=== PATIENT | female | born 1955 | race Caucasian/White ===

== ENCOUNTER 2018-04-26 12:36 | Inpatient (IN) | payer OTHER ==
[~2018-04-26] VITALS: Ht 167.6 cm; Wt 118.0 kg
[2018-04-26 15:00] VITALS: BP 123/69
[2018-04-26] MEDS: insulin regular, human inj. 100 UNITS in normal saline 100ml IV soln 100 ML IV SCH ×2 (16:10)
[2018-04-26] MEDS ORDERED: dextrose 50%-water 50ml dispensing syringe IV PRN (16:10)
[2018-04-26] MEDS ORDERED: MESSAGE TO NURSING PO ONE ×3 (16:10)
[2018-04-26] MEDS ORDERED: HYDROcodone/acetaminophen 5mg/325mg tablet PO PRN (16:15)
[2018-04-26] MEDS ORDERED: diphenhydrAMINE 25mg capsule PO PRN (16:15)
[2018-04-26] MEDS ORDERED: METF500T PO (16:31)
[2018-04-26] MEDS ORDERED: GABA-534 PO (16:32)
[2018-04-26] MEDS ORDERED: SITA50TA PO (16:32)
[2018-04-26 16:57] LABS: HEMATOCRIT 41.8 % (35.0-45.0); HEMOGLOBIN 13.9 g/dl (12.0-16.0); MEAN CORPUSCULAR HEMOGLOBIN 26.9 PG (27.0-31.0); MEAN CORPUSCULAR HGB CONC 33.3 % (33.0-36.5); MEAN CORPUSCULAR VOLUME 80.8 FL (78-98); MEAN PLATELET VOLUME 8.8 FL (7.4-10.4); PLATELET COUNT 296 X10'3 (140-440); RED BLOOD COUNT 5.18 X10'6 (4.20-5.60); RED CELL DISTRIBUTION WIDTH 14.3 % (11.5-14.5)
[2018-04-26 17:17] LABS: HEMOGLOBIN A1C 8.1 % (4.5-6.2)
[2018-04-26 17:18] LABS: ALBUMIN 3.3 G/DL (3.4-5.0); ANION GAP 7 (8-16); BLOOD UREA NITROGEN 14 MG/DL (7-18); BUN/CREATININE RATIO 20.9 (6.6-38.0); CALCIUM 9.1 MG/DL (8.5-10.1); CHLORIDE 103 MMOL/L (99-107); CREATININE 0.67 MG/DL (0.40-0.90); GLUCOSE 164 MG/DL (70-104); POTASSIUM 4.2 MMOL/L (3.5-5.1); SODIUM 139 MMOL/L (135-145); TOTAL CARBON DIOXIDE 28.8 MMOL/L (24-32); eGFR 90 ML/MIN
[2018-04-26] MEDS: metFORMIN 500mg tablet PO SCH (17:40)
[2018-04-26 18:01] LABS: PARTIAL THROMBOPLASTIN TIME 28 SECONDS (22-32); PROTHROMBIN TIME 10.6 SECONDS (9.0-12.0)
[2018-04-26 19:00] VITALS: BP 123/59
[2018-04-26] MEDS ORDERED: ibuprofen 200mg tablet PO SCH (20:00)
[2018-04-26] MEDS: carVEDilol 3.125mg tablet PO SCH (20:41)
[2018-04-26] MEDS: enoxaparin 40mg/0.4ml syringe SUBCUT SCH (20:42)
[2018-04-26 23:00] VITALS: BP 119/63
[2018-04-26] MEDS: gabapentin 400mg capsule PO SCH (23:18)
[2018-04-27 03:00] VITALS: BP 103/57
[2018-04-27 06:00] VITALS: BP 123/67
[2018-04-27] MEDS ORDERED: glipizide 5mg tablet PO SCH (07:30)
[2018-04-27] MEDS: atorvastatin 20mg tablet PO SCH (07:57)
[2018-04-27] MEDS: gabapentin 400mg capsule PO SCH ×2 (07:57→18:51)
[2018-04-27] MEDS: aspirin 81mg tab.chew PO SCH (07:57)
[2018-04-27] MEDS: carVEDilol 3.125mg tablet PO SCH ×2 (07:58→19:50)
[2018-04-27] MEDS: metFORMIN 500mg tablet PO SCH (07:58)
[2018-04-27] MEDS: enoxaparin 40mg/0.4ml syringe SUBCUT SCH ×2 (07:59→19:51)
[2018-04-27] MEDS: mupirocin 2% nasal ointment 1gm UD NS SCH ×2 (08:00→20:00)
[2018-04-27] MEDS: insulin Lispro (HumaLOG) vial - multi-dose SQ SCH ×3 (09:00→18:00)
[2018-04-27] MEDS ORDERED: MESSAGE TO NURSING PO ONE (10:00)
[2018-04-27 11:00] VITALS: BP 99/57
[2018-04-27] MEDS ORDERED: albuterol 2.5 MG/3 ML nebule NEB ONE (11:15)
[2018-04-27 12:55] LABS: ABG BASE EXCESS 0.4 mmol/L (-2.0-3.0); ABG HCO3 25.1 mmol/L (22.0-26.0); ABG OXYGEN SATURATION 92.3 % (95-98); ABG PCO2 (T) 40.8 mmHg (32.0-45.0); ABG PH (T) 7.407 (7.350-7.450); ABG PO2 (T) 61.3 mmHg (83-108); ALLEN'S TEST Positive; FCOHb 0.8 % (0.5-1.5); FMetHb 0.1 % (0.3-1.12); FO2Hb 91.5 % (94-100); TOTAL HEMOGLOBIN 14.5 G/dl (12.0-16.0)
[2018-04-27 15:00] VITALS: BP 115/61
[2018-04-27] MEDS: insulin regular, human inj. 100 UNITS in normal saline 100ml IV soln 100 ML IV SCH ×2 (16:10)
[2018-04-27 19:00] VITALS: BP 109/50
[2018-04-27 23:00] VITALS: BP 109/56
[2018-04-28] MEDS: gabapentin 400mg capsule PO SCH ×3 (01:22→16:06)
[2018-04-28 03:00] VITALS: BP 117/64
[2018-04-28 05:51] LABS: BASOPHILS % (AUTO) 0.4 % (0-1); EOSINOPHILS # (AUTO) 0.3 X10'3 (0-0.9); EOSINOPHILS % (AUTO) 2.6 % (0-6); HEMATOCRIT 39.8 % (35.0-45.0); HEMOGLOBIN 13.4 g/dl (12.0-16.0); LYMPHOCYTES # (AUTO) 2.4 X10'3 (1.1-4.8); MEAN CORPUSCULAR HGB CONC 33.5 % (33.0-36.5); MEAN CORPUSCULAR VOLUME 80.4 FL (78-98); MONOCYTES % (AUTO) 9.1 % (2-12); NEUTROPHILS # (AUTO) 7.2 X10'3 (1.8-7.7); NEUTROPHILS % (AUTO) 65.9 % (42-75); PLATELET COUNT 267 X10'3 (140-440); RED BLOOD COUNT 4.95 X10'6 (4.20-5.60); RED CELL DISTRIBUTION WIDTH 14.6 % (11.5-14.5)
[2018-04-28 06:00] VITALS: BP_SYST 113; BP_SYST 133; BP_DIAS 56; BP_DIAS 71
[2018-04-28 06:08] LABS: ALBUMIN 3.2 G/DL (3.4-5.0); ANION GAP 10 (8-16); BLOOD UREA NITROGEN 13 MG/DL (7-18); BUN/CREATININE RATIO 16.3 (6.6-38.0); CALCIUM 9.1 MG/DL (8.5-10.1); CHLORIDE 102 MMOL/L (99-107); GLUCOSE 163 MG/DL (70-104); SODIUM 139 MMOL/L (135-145); TOTAL CARBON DIOXIDE 26.9 MMOL/L (24-32); eGFR 73 ML/MIN
[2018-04-28] MEDS: enoxaparin 40mg/0.4ml syringe SUBCUT SCH ×2 (07:06→20:00)
[2018-04-28] MEDS: atorvastatin 20mg tablet PO SCH (07:16)
[2018-04-28] MEDS: mupirocin 2% nasal ointment 1gm UD NS SCH ×2 (07:16→08:00)
[2018-04-28] MEDS: carVEDilol 3.125mg tablet PO SCH ×2 (07:17→20:38)
[2018-04-28] MEDS ORDERED: dextrose 50%-water 50ml dispensing syringe IV PRN ×2 (08:50)
[2018-04-28] MEDS ORDERED: dextrose ORAL solution 15 GM/59 ML bottle PO PRN ×2 (08:50)
[2018-04-28] MEDS ORDERED: insulin Lispro (HumaLOG) vial - multi-dose SQ SCH (08:50)
[2018-04-28] MEDS ORDERED: glucagon, human recombinant 1mg kit SUBCUT PRN (08:50)
[2018-04-28] MEDS: insulin Lispro (HumaLOG) vial - multi-dose SQ SCH ×4 (09:00→19:30)
[2018-04-28] MEDS: aspirin 81mg tab.chew PO SCH (09:08)
[2018-04-28 11:00] VITALS: BP 128/82
[2018-04-28 15:00] VITALS: BP 101/62
[2018-04-28] MEDS ORDERED: ringers solution, lacted 1,000 ML IV ONE (16:33)
[2018-04-28 19:00] VITALS: BP 122/55
[2018-04-28] MEDS ORDERED: insulin glargine (Lantus) pen - multi-dose SQ SCH (21:00)
[2018-04-28 23:00] VITALS: BP 124/54
[2018-04-29] VITALS (16 sets, daily range): BP systolic 112–147; BP diastolic 46–63
[2018-04-29] MEDS: gabapentin 400mg capsule PO SCH ×2 (00:01→08:00)
[2018-04-29] MEDS ORDERED: mupirocin 2% nasal ointment 1gm UD NS SCH (03:00)
[2018-04-29] MEDS ORDERED: metoprolol tartrate 12.5mg (1/2 tablet) PO ONE (05:50)
[2018-04-29] MEDS ORDERED: ceFAZolin 1GM/D5W- ADD-VANTAGE 50 ML IV ONE (06:00)
[2018-04-29] MEDS ORDERED: LORazepam 2 mg/ml vial IV ONE (06:00)
[2018-04-29] MEDS: insulin regular, human inj. 100 UNITS in normal saline 100ml IV soln 100 ML IV SCH ×2 (06:00)
[2018-04-29] MEDS ORDERED: famotidine/PF 10 mg/ml inj IV ONE (06:00)
[2018-04-29] MEDS ORDERED: vancomycin/NS 1 GM ADD-VANTAGE 250 ML IV ONE (06:00)
[2018-04-29 06:12] LABS: BASOPHILS % (AUTO) 0.4 % (0-1); EOSINOPHILS # (AUTO) 0.3 X10'3 (0-0.9); EOSINOPHILS % (AUTO) 2.6 % (0-6); HEMATOCRIT 40.3 % (35.0-45.0); HEMOGLOBIN 13.5 g/dl (12.0-16.0); LYMPHOCYTES # (AUTO) 2.5 X10'3 (1.1-4.8); LYMPHOCYTES % (AUTO) 21.1 % (21-51); MEAN CORPUSCULAR HEMOGLOBIN 27.1 PG (27.0-31.0); MEAN CORPUSCULAR HGB CONC 33.5 % (33.0-36.5); MEAN PLATELET VOLUME 8.8 FL (7.4-10.4); MONOCYTES % (AUTO) 8.2 % (2-12); NEUTROPHILS % (AUTO) 67.7 % (42-75); PLATELET COUNT 279 X10'3 (140-440); RED BLOOD COUNT 4.97 X10'6 (4.20-5.60); RED CELL DISTRIBUTION WIDTH 14.7 % (11.5-14.5); WHITE BLOOD COUNT 11.8 X10'3 (4.5-11.0)
[2018-04-29 06:25] LABS: INR 1.1 INR; PROTHROMBIN TIME 10.7 SECONDS (9.0-12.0)
[2018-04-29 06:27] LABS: ALBUMIN 3.3 G/DL (3.4-5.0); ANION GAP 9 (8-16); BLOOD UREA NITROGEN 18 MG/DL (7-18); BUN/CREATININE RATIO 23.1 (6.6-38.0); CALCIUM 8.8 MG/DL (8.5-10.1); CHLORIDE 104 MMOL/L (99-107); CREATININE 0.78 MG/DL (0.40-0.90); GLUCOSE 158 MG/DL (70-104); SODIUM 141 MMOL/L (135-145); TOTAL CARBON DIOXIDE 28.5 MMOL/L (24-32); eGFR 75 ML/MIN
[2018-04-29] MEDS ORDERED: sevoflurane 250ml liquid IH ONE (06:40)
[2018-04-29] MEDS ORDERED: protamine sulf. 10mg/ml inj. IV ONE (06:40)
[2018-04-29] MEDS ORDERED: aminocaproic acid 250 MG/1 ML inj. ONE (06:40)
[2018-04-29] MEDS ORDERED: nitroGLYCERIN in D5W 50mg/250ml (Tridil) infusion IV ONE (06:40)
[2018-04-29] MEDS ORDERED: MIDAZolam 1mg/ml 10ml vial ONE (06:50)
[2018-04-29] MEDS ORDERED: SUFENTANIL CITRATE 50 MCG/ML 2ml ampule IV ONE ×2 (06:51→08:14)
[2018-04-29] MEDS ORDERED: etomidate 2mg/ml inj. ONE (06:53)
[2018-04-29] MEDS ORDERED: pancuronium br 1mg/ml inj IV ONE (06:53)
[2018-04-29 07:36] LABS: ABG BASE EXCESS -2.9 mmol/L (-2.0-3.0); ABG HCO3 21.9 mmol/L (22.0-26.0); ABG OXYGEN SATURATION 96.8 % (95-98); ABG PCO2 38.5 mmHg (35.0-45.0); ABG PH 7.373 (7.350-7.450); ABG PO2 93.8 mmHg (60.0-100.0); CL (ABG) 105 mmol/L (99-107); FCOHb 0.8 % (0.5-1.5); FMetHb 0.3 % (0.3-1.12); FO2Hb 95.7 % (94-100); GLUCOSE (ABG) 149 mg/dl (70-105); IONIZED CA (ABG) 1.14 mmol/L (1.03-1.32); K (ABG) 4.3 mmol/L (3.3-5.1); NA (ABG) 136 mmol/L (135-145); TOTAL HEMOGLOBIN 13.1 G/dl (12.0-16.0)
[2018-04-29] MEDS ORDERED: heparin 10,000 units/1 ML INJ IR ONE (07:51)
[2018-04-29] MEDS ORDERED: papaverine 30 mg/ml 2ml inj. IA ONE (07:52)
[2018-04-29] MEDS: carVEDilol 3.125mg tablet PO SCH (08:00)
[2018-04-29] MEDS: enoxaparin 40mg/0.4ml syringe SUBCUT SCH (08:00)
[2018-04-29] MEDS: atorvastatin 20mg tablet PO SCH (08:00)
[2018-04-29] MEDS ORDERED: phenylephrine 10mg/ml inj. ONE (08:07)
[2018-04-29] MEDS: aspirin 81mg tab.chew PO SCH (08:30)
[2018-04-29] MEDS: insulin Lispro (HumaLOG) vial - multi-dose SQ SCH ×4 (09:00→14:45)
[2018-04-29 09:16] LABS: ABG BASE EXCESS -2.5 mmol/L (-2.0-3.0); ABG HCO3 22.9 mmol/L (22.0-26.0); ABG OXYGEN SATURATION 98.8 % (95-98); ABG PH 7.354 (7.350-7.450); CL (ABG) 104 mmol/L (99-107); FCOHb 0.1 % (0.5-1.5); FMetHb 0.2 % (0.3-1.12); FO2Hb 98.5 % (94-100); GLUCOSE (ABG) 160 mg/dl (70-105); IONIZED CA (ABG) 1.06 mmol/L (1.03-1.32); K (ABG) 5.1 mmol/L (3.3-5.1); NA (ABG) 133 mmol/L (135-145); TOTAL HEMOGLOBIN 10.8 G/dl (12.0-16.0)
[2018-04-29 09:40] LABS: ABG HCO3 VENOUS 23.9 mmol/L; ABG PCO2 VENOUS 45.9 mmHg; ABG PO2 VENOUS 52.5 mmHg; CL (ABG) 104 mmol/L (99-107); FCOHb VENOUS 0.8 %; FHHb VENOUS 14.5 %; FMetHb VENOUS 0.1 %; FO2Hb VENOUS 84.6 %; GLUCOSE (ABG) 182 mg/dl (70-105); IONIZED CA (ABG) 1.09 mmol/L (1.03-1.32); K (ABG) 4.8 mmol/L (3.3-5.1); NA (ABG) 135 mmol/L (135-145); TOTAL HEMOGLOBIN 11.2 G/dl (12.0-16.0)
[2018-04-29 09:56] LABS: ABG BASE EXCESS 0.3 mmol/L (-2.0-3.0); ABG HCO3 26.6 mmol/L (22.0-26.0); ABG OXYGEN SATURATION 98.8 % (95-98); ABG PCO2 50.9 mmHg (35.0-45.0); ABG PH 7.336 (7.350-7.450); ABG PO2 253.3 mmHg (60.0-100.0); CL (ABG) 104 mmol/L (99-107); FCOHb 0.4 % (0.5-1.5); FMetHb 0.2 % (0.3-1.12); FO2Hb 98.2 % (94-100); GLUCOSE (ABG) 192 mg/dl (70-105); IONIZED CA (ABG) 1.01 mmol/L (1.03-1.32); K (ABG) 4.8 mmol/L (3.3-5.1); NA (ABG) 135 mmol/L (135-145); TOTAL HEMOGLOBIN 10.5 G/dl (12.0-16.0)
[2018-04-29 10:21] LABS: ABG BASE EXCESS -0.1 mmol/L (-2.0-3.0); ABG HCO3 24.8 mmol/L (22.0-26.0); ABG OXYGEN SATURATION 98.7 % (95-98); ABG PCO2 41.3 mmHg (35.0-45.0); ABG PH 7.396 (7.350-7.450); ABG PO2 221.2 mmHg (60.0-100.0); CL (ABG) 106 mmol/L (99-107); FCOHb 0.4 % (0.5-1.5); FO2Hb 98.3 % (94-100); GLUCOSE (ABG) 197 mg/dl (70-105); IONIZED CA (ABG) 1.06 mmol/L (1.03-1.32); K (ABG) 4.8 mmol/L (3.3-5.1); NA (ABG) 135 mmol/L (135-145); TOTAL HEMOGLOBIN 10.6 G/dl (12.0-16.0)
[2018-04-29 10:45] LABS: ABG BASE EXCESS 2.9 mmol/L (-2.0-3.0); ABG HCO3 28.5 mmol/L (22.0-26.0); ABG OXYGEN SATURATION 98.8 % (95-98); ABG PCO2 49.2 mmHg (35.0-45.0); ABG PH 7.381 (7.350-7.450); CL (ABG) 103 mmol/L (99-107); FCOHb 0.1 % (0.5-1.5); FMetHb 0.1 % (0.3-1.12); FO2Hb 98.6 % (94-100); GLUCOSE (ABG) 180 mg/dl (70-105); IONIZED CA (ABG) 1.43 mmol/L (1.03-1.32); K (ABG) 4.9 mmol/L (3.3-5.1); NA (ABG) 132 mmol/L (135-145); TOTAL HEMOGLOBIN 9.6 G/dl (12.0-16.0)
[2018-04-29 11:06] LABS: ABG BASE EXCESS VENOUS 1.8 mmol/L; ABG HCO3 VENOUS 28.3 mmol/L; ABG PCO2 VENOUS 53.6 mmHg; ABG PO2 VENOUS 47.2 mmHg; CL (ABG) 105 mmol/L (99-107); FCOHb VENOUS 0.8 %; FHHb VENOUS 19.6 %; FMetHb VENOUS 0.2 %; FO2Hb VENOUS 79.4 %; GLUCOSE (ABG) 166 mg/dl (70-105); IONIZED CA (ABG) 1.27 mmol/L (1.03-1.32); K (ABG) 4.6 mmol/L (3.3-5.1); NA (ABG) 136 mmol/L (135-145); TOTAL HEMOGLOBIN 10.3 G/dl (12.0-16.0)
[2018-04-29] MEDS ORDERED: albumin (Human) 5% 250ml 250 ML IV ONE (11:33)
[2018-04-29] MEDS ORDERED: ondansetron/PF 4mg/2ml inj IV PRN (11:35)
[2018-04-29] MEDS ORDERED: morphine 4 MG/ML inj SYRINge IV PRN (11:35)
[2018-04-29] MEDS ORDERED: niCARDipine-NS 40mg/200ml IVPB 200 ML IV PRN (11:35)
[2018-04-29] MEDS ORDERED: DOPamine 400mg/D5W 250ml 250 ML IV PRN (11:35)
[2018-04-29] MEDS ORDERED: metoclopramide 5 mg/ml inj IV PRN (11:35)
[2018-04-29] MEDS ORDERED: albumin (Human) 5% 250ml 250 ML IV PRN (11:35)
[2018-04-29] MEDS ORDERED: normal saline 250ml IV soln 250 ML IV PRN (11:35)
[2018-04-29] MEDS ORDERED: magnesium hydroxide 30ml (MOM) UD suspension PO PRN (11:35)
[2018-04-29] MEDS ORDERED: potassium Cl 20mEq/100mL bag 100 ML IV PRN ×2 (11:35)
[2018-04-29] MEDS ORDERED: pantoprazole 40 MG vial IV ONE (11:35)
[2018-04-29] MEDS ORDERED: sodium phosphate inj. 30 MMOL in dextrose 5%-water 250 ML IV PRN (11:35)
[2018-04-29] MEDS ORDERED: dextrose 50%-water 50ml dispensing syringe IV PRN (11:35)
[2018-04-29] MEDS ORDERED: magnesium 4gm in 100ml NS 100 ML IV PRN (11:35)
[2018-04-29] MEDS ORDERED: nitroGLYCERIN-Tridil 50MG/D5W 250 ML IV PRN ×2 (11:35→12:05)
[2018-04-29] MEDS ORDERED: Neutra Phos packet PO PRN (11:35)
[2018-04-29] MEDS ORDERED: sodium phosphate inj. 15 MMOL in dextrose 5%-water 150 ML IV PRN (11:35)
[2018-04-29] MEDS ORDERED: acetaminophen 325mg tablet PO PRN (11:35)
[2018-04-29] MEDS ORDERED: insulin regular, human inj. 100 UNITS in normal saline 100ml IV soln 100 ML IV SCH ×2 (11:35)
[2018-04-29 12:11] LABS: ABG BASE EXCESS -0.5 mmol/L (-2.0-3.0); ABG HCO3 24.6 mmol/L (22.0-26.0); ABG OXYGEN SATURATION 94.6 % (95-98); ABG PH (T) 7.385 (7.350-7.450); ABG PO2 (T) 75.7 mmHg (83-108); FCOHb 0.1 % (0.5-1.5); FMetHb 0.2 % (0.3-1.12); FO2Hb 94.3 % (94-100); MINUTE VOLUME 15 L/min; PEEP 5 cm H2O; RESPIRATORY RATE 14 b/min; RESPIRATORY RATE (OBSERVED) 31 b/min; TIDAL VOLUME 650 mL; TOTAL HEMOGLOBIN 12.5 G/dl (12.0-16.0)
[2018-04-29 12:21] LABS: BASOPHILS % (AUTO) 0.1 % (0-1); EOSINOPHILS % (AUTO) 0.1 % (0-6); HEMATOCRIT 35.3 % (35.0-45.0); HEMOGLOBIN 11.7 g/dl (12.0-16.0); LYMPHOCYTES # (AUTO) 1.3 X10'3 (1.1-4.8); LYMPHOCYTES % (AUTO) 6.7 % (21-51); MEAN CORPUSCULAR HEMOGLOBIN 26.9 PG (27.0-31.0); MEAN CORPUSCULAR HGB CONC 33.1 % (33.0-36.5); MEAN CORPUSCULAR VOLUME 81.2 FL (78-98); MEAN PLATELET VOLUME 8.9 FL (7.4-10.4); MONOCYTES # (AUTO) 0.7 X10'3 (0-0.9); MONOCYTES % (AUTO) 3.8 % (2-12); NEUTROPHILS # (AUTO) 16.9 X10'3 (1.8-7.7); NEUTROPHILS % (AUTO) 89.3 % (42-75); PLATELET COUNT 191 X10'3 (140-440); RED BLOOD COUNT 4.35 X10'6 (4.20-5.60); RED CELL DISTRIBUTION WIDTH 14.9 % (11.5-14.5); WHITE BLOOD COUNT 18.9 X10'3 (4.5-11.0)
[2018-04-29] MEDS: morphine 4 MG/ML inj SYRINge IV PRN ×3 (12:36→23:45)
[2018-04-29] MEDS: sodium chloride 0.45% 1,000 ML IV SCH (12:39)
[2018-04-29 12:51] LABS: ALANINE AMINOTRANSFERASE 26 U/L (12-78); ALBUMIN 3.3 G/DL (3.4-5.0); ALBUMIN/GLOBULIN RATIO 1.2 (1.1-1.5); ALKALINE PHOSPHATASE 71 IU/L (46-116); ANION GAP 7 (8-16); ASPARTATE AMINO TRANSFERASE 35 U/L (10-37); BILIRUBIN,TOTAL 0.5 MG/DL (0.1-1.0); BLOOD UREA NITROGEN 18 MG/DL (7-18); BUN/CREATININE RATIO 20.2 (6.6-38.0); CALCIUM 8.7 MG/DL (8.5-10.1); CHLORIDE 108 MMOL/L (99-107); CREATININE 0.89 MG/DL (0.40-0.90); GLUCOSE 132 MG/DL (70-104); INR 1.1 INR; PARTIAL THROMBOPLASTIN TIME 36 SECONDS (22-32); PHOSPHORUS 2.3 MG/DL (2.3-4.5); PROTHROMBIN TIME 11.4 SECONDS (9.0-12.0); SODIUM 142 MMOL/L (135-145); TOTAL CARBON DIOXIDE 26.8 MMOL/L (24-32); eGFR 65 ML/MIN
[2018-04-29] MEDS: potassium Cl 20mEq/100mL bag 100 ML IV PRN ×2 (13:06→15:09)
[2018-04-29 15:20] LABS: ABG BASE EXCESS -2.2 mmol/L (-2.0-3.0); ABG HCO3 21.4 mmol/L (22.0-26.0); ABG OXYGEN SATURATION 96.6 % (95-98); FCOHb 0.3 % (0.5-1.5); FMetHb 0.1 % (0.3-1.12); FO2Hb 96.2 % (94-100); MINUTE VOLUME 12 L/min; PATIENT TEMPERATURE 37.1; PEEP 5 cm H2O; RESPIRATORY RATE 14 b/min; RESPIRATORY RATE (OBSERVED) 24 b/min; TIDAL VOLUME 650 mL
[2018-04-29] MEDS: cefazolin/dext.iso 2gm/100ml 100 ML IV SCH ×2 (15:57→23:44)
[2018-04-29 17:32] LABS: BASOPHILS % (AUTO) 0 % (0-1); EOSINOPHILS # (AUTO) 0.3 X10'3 (0-0.9); EOSINOPHILS % (AUTO) 1.7 % (0-6); HEMATOCRIT 35.1 % (35.0-45.0); HEMOGLOBIN 11.6 g/dl (12.0-16.0); LYMPHOCYTES # (AUTO) 0.7 X10'3 (1.1-4.8); LYMPHOCYTES % (AUTO) 4.1 % (21-51); MEAN CORPUSCULAR HEMOGLOBIN 26.9 PG (27.0-31.0); MEAN CORPUSCULAR VOLUME 81.4 FL (78-98); MEAN PLATELET VOLUME 9.1 FL (7.4-10.4); MONOCYTES # (AUTO) 0.4 X10'3 (0-0.9); MONOCYTES % (AUTO) 2.3 % (2-12); NEUTROPHILS # (AUTO) 16.3 X10'3 (1.8-7.7); NEUTROPHILS % (AUTO) 91.9 % (42-75); PLATELET COUNT 197 X10'3 (140-440); RED BLOOD COUNT 4.31 X10'6 (4.20-5.60); RED CELL DISTRIBUTION WIDTH 14.5 % (11.5-14.5); WHITE BLOOD COUNT 17.7 X10'3 (4.5-11.0)
[2018-04-29 17:50] LABS: ALBUMIN 3.3 G/DL (3.4-5.0); ANION GAP 9 (8-16); BLOOD UREA NITROGEN 18 MG/DL (7-18); BUN/CREATININE RATIO 19.6 (6.6-38.0); CALCIUM 8.3 MG/DL (8.5-10.1); CHLORIDE 111 MMOL/L (99-107); CREATININE 0.92 MG/DL (0.40-0.90); GLUCOSE 155 MG/DL (70-104); MAGNESIUM 2.2 MG/DL (1.5-2.4); PHOSPHORUS 1.8 MG/DL (2.3-4.5); POTASSIUM 3.9 MMOL/L (3.5-5.1); SODIUM 145 MMOL/L (135-145); TOTAL CARBON DIOXIDE 24.9 MMOL/L (24-32); eGFR 62 ML/MIN
[2018-04-29] MEDS: magnesium 1gm/100ml D5W IVPB 100 ML IV PRN (18:32)
[2018-04-29] MEDS: docusate sod 100mg capsule PO SCH (19:59)
[2018-04-29] MEDS: mupirocin 2% nasal ointment 1gm UD NS SCH (19:59)
[2018-04-29] MEDS: vancomycin/NS 1 GM ADD-VANTAGE 250 ML IV SCH (19:59)
[2018-04-29 21:06] LABS: ABG BASE EXCESS -1.9 mmol/L (-2.0-3.0); ABG HCO3 22.5 mmol/L (22.0-26.0); ABG OXYGEN SATURATION 91.9 % (95-98); ABG PCO2 (T) 38.7 mmHg (32.0-45.0); ABG PH (T) 7.386 (7.350-7.450); ABG PO2 (T) 66.3 mmHg (83-108); FCOHb 0.1 % (0.5-1.5); FMetHb 0.1 % (0.3-1.12); FO2Hb 91.7 % (94-100); MINUTE VOLUME 10 L/min; PATIENT TEMPERATURE 37.8; PEEP 5 cm H2O; TOTAL HEMOGLOBIN 12.4 G/dl (12.0-16.0)
[2018-04-29] MEDS: HYDROcodone/acetaminophen 10/325mg tab PO PRN (21:22)
[2018-04-30] VITALS (24 sets, daily range): BP systolic 93–160; BP diastolic 48–88
[2018-04-30] MEDS: HYDROcodone/acetaminophen 10/325mg tab PO PRN ×4 (01:32→19:35)
[2018-04-30 03:51] LABS: BASOPHILS % (AUTO) 0 % (0-1); EOSINOPHILS % (AUTO) 0 % (0-6); HEMATOCRIT 33.3 % (35.0-45.0); HEMOGLOBIN 11.1 g/dl (12.0-16.0); MEAN CORPUSCULAR HEMOGLOBIN 27.2 PG (27.0-31.0); MEAN CORPUSCULAR HGB CONC 33.3 % (33.0-36.5); MEAN CORPUSCULAR VOLUME 81.7 FL (78-98); MEAN PLATELET VOLUME 9.4 FL (7.4-10.4); MONOCYTES # (AUTO) 1.1 X10'3 (0-0.9); MONOCYTES % (AUTO) 4.6 % (2-12); NEUTROPHILS # (AUTO) 21.9 X10'3 (1.8-7.7); NEUTROPHILS % (AUTO) 91.4 % (42-75); PLATELET COUNT 190 X10'3 (140-440); RED BLOOD COUNT 4.08 X10'6 (4.20-5.60); RED CELL DISTRIBUTION WIDTH 15.2 % (11.5-14.5)
[2018-04-30 04:23] LABS: PLATELET ESTIMATE NORMAL; TOTAL CELLS COUNTED 100
[2018-04-30 04:43] LABS: INR 1.1 INR; PARTIAL THROMBOPLASTIN TIME 28 SECONDS (22-32); PROTHROMBIN TIME 10.7 SECONDS (9.0-12.0)
[2018-04-30 04:53] LABS: ALANINE AMINOTRANSFERASE 26 U/L (12-78); ALBUMIN 3.2 G/DL (3.4-5.0); ALKALINE PHOSPHATASE 63 IU/L (46-116); ANION GAP 11 (8-16); ASPARTATE AMINO TRANSFERASE 45 U/L (10-37); BILIRUBIN,TOTAL 0.4 MG/DL (0.1-1.0); BLOOD UREA NITROGEN 14 MG/DL (7-18); BUN/CREATININE RATIO 20.6 (6.6-38.0); CALCIUM 8.3 MG/DL (8.5-10.1); CHLORIDE 108 MMOL/L (99-107); CREATININE 0.68 MG/DL (0.40-0.90); GLUCOSE 153 MG/DL (70-104); MAGNESIUM 2.1 MG/DL (1.5-2.4); PHOSPHORUS 3.3 MG/DL (2.3-4.5); POTASSIUM 4.4 MMOL/L (3.5-5.1); SODIUM 142 MMOL/L (135-145); TOTAL CARBON DIOXIDE 23.2 MMOL/L (24-32); TOTAL PROTEIN 6.3 G/DL (6.4-8.2); eGFR 88 ML/MIN
[2018-04-30] MEDS: magnesium 1gm/100ml D5W IVPB 100 ML IV PRN (05:42)
[2018-04-30] MEDS: potassium Cl 20mEq/100mL bag 100 ML IV PRN (05:42)
[2018-04-30] MEDS: insulin regular, human inj. 100 UNITS in normal saline 100ml IV soln 100 ML IV SCH ×2 (06:00)
[2018-04-30] MEDS: cefazolin/dext.iso 2gm/100ml 100 ML IV SCH ×3 (07:57→23:46)
[2018-04-30] MEDS: gabapentin 400mg capsule PO SCH ×3 (07:58→23:46)
[2018-04-30] MEDS: docusate sod 100mg capsule PO SCH ×2 (07:58→19:36)
[2018-04-30] MEDS: carVEDilol 3.125mg tablet PO SCH ×2 (07:58→19:36)
[2018-04-30] MEDS: atorvastatin 20mg tablet PO SCH (07:58)
[2018-04-30] MEDS ORDERED: aspirin 325mg tablet, delayed-release (Ecotrin) PO SCH (08:00)
[2018-04-30] MEDS ORDERED: atorvastatin 10mg tablet PO SCH (08:00)
[2018-04-30] MEDS ORDERED: metoprolol tartrate 12.5mg (1/2 tablet) PO SCH (08:00)
[2018-04-30] MEDS: mupirocin 2% nasal ointment 1gm UD NS SCH ×2 (08:35→19:35)
[2018-04-30] MEDS: insulin Lispro (HumaLOG) vial - multi-dose SQ SCH ×3 (08:37→19:00)
[2018-04-30] MEDS: vancomycin/NS 1 GM ADD-VANTAGE 250 ML IV SCH ×2 (08:40→19:35)
[2018-04-30] MEDS: ketorolac tromethamine 15mg/ml inj. IV SCH ×2 (14:47→19:35)
[2018-04-30] MEDS: insulin glargine (Lantus) pen - multi-dose SQ SCH (21:34)
[2018-05-01] VITALS (24 sets, daily range): BP systolic 81–125; BP diastolic 44–74
[2018-05-01] MEDS: HYDROcodone/acetaminophen 10/325mg tab PO PRN ×3 (01:39→21:06)
[2018-05-01] MEDS: ketorolac tromethamine 15mg/ml inj. IV SCH ×4 (01:40→21:07)
[2018-05-01 03:57] LABS: BASOPHILS % (AUTO) 0.1 % (0-1); EOSINOPHILS # (AUTO) 0.3 X10'3 (0-0.9); EOSINOPHILS % (AUTO) 1.5 % (0-6); HEMATOCRIT 30.9 % (35.0-45.0); HEMOGLOBIN 10.1 g/dl (12.0-16.0); LYMPHOCYTES # (AUTO) 2.1 X10'3 (1.1-4.8); LYMPHOCYTES % (AUTO) 9.9 % (21-51); MEAN CORPUSCULAR HGB CONC 32.8 % (33.0-36.5); MEAN CORPUSCULAR VOLUME 82.3 FL (78-98); MEAN PLATELET VOLUME 9.3 FL (7.4-10.4); MONOCYTES # (AUTO) 2.3 X10'3 (0-0.9); MONOCYTES % (AUTO) 10.9 % (2-12); NEUTROPHILS # (AUTO) 16.4 X10'3 (1.8-7.7); NEUTROPHILS % (AUTO) 77.6 % (42-75); PLATELET COUNT 159 X10'3 (140-440); RED BLOOD COUNT 3.75 X10'6 (4.20-5.60); RED CELL DISTRIBUTION WIDTH 15.3 % (11.5-14.5); WHITE BLOOD COUNT 21.1 X10'3 (4.5-11.0)
[2018-05-01 04:56] LABS: ALBUMIN 2.9 G/DL (3.4-5.0); ANION GAP 5 (8-16); BLOOD UREA NITROGEN 22 MG/DL (7-18); CHLORIDE 102 MMOL/L (99-107); CREATININE 0.88 MG/DL (0.40-0.90); GLUCOSE 190 MG/DL (70-104); MAGNESIUM 2.4 MG/DL (1.5-2.4); PHOSPHORUS 3.4 MG/DL (2.3-4.5); POTASSIUM 5.2 MMOL/L (3.5-5.1); SODIUM 134 MMOL/L (135-145); TOTAL CARBON DIOXIDE 26.6 MMOL/L (24-32); eGFR 66 ML/MIN
[2018-05-01 05:10] LABS: PLATELET ESTIMATE NORMAL; TOTAL CELLS COUNTED 100
[2018-05-01] MEDS: insulin regular, human inj. 100 UNITS in normal saline 100ml IV soln 100 ML IV SCH ×2 (06:00)
[2018-05-01] MEDS: aspirin 81mg tablet.DR PO SCH (07:30)
[2018-05-01] MEDS: carVEDilol 3.125mg tablet PO SCH ×2 (07:30→21:06)
[2018-05-01] MEDS: atorvastatin 20mg tablet PO SCH (07:30)
[2018-05-01] MEDS: pantoprazole 40mg Tablet.DR PO SCH (07:30)
[2018-05-01] MEDS: docusate sod 100mg capsule PO SCH ×2 (07:30→21:06)
[2018-05-01] MEDS: gabapentin 400mg capsule PO SCH ×2 (07:30→15:52)
[2018-05-01] MEDS: mupirocin 2% nasal ointment 1gm UD NS SCH (07:34)
[2018-05-01] MEDS ORDERED: magnesium 2GM in 50ml NS 50 ML IV PRN (07:55)
[2018-05-01] MEDS: insulin Lispro (HumaLOG) vial - multi-dose SQ SCH ×3 (08:37→19:14)
[2018-05-01] MEDS: sodium chloride 0.45% 1,000 ML IV SCH (11:35)
[2018-05-01] MEDS: insulin glargine (Lantus) pen - multi-dose SQ SCH (21:09)
[2018-05-02] VITALS (14 sets, daily range): BP systolic 93–140; BP diastolic 46–86
[2018-05-02] MEDS: insulin regular, human inj. 100 UNITS in normal saline 100ml IV soln 100 ML IV SCH ×2 (00:05)
[2018-05-02] MEDS: gabapentin 400mg capsule PO SCH ×3 (00:15→16:36)
[2018-05-02] MEDS: ketorolac tromethamine 15mg/ml inj. IV SCH (01:57)
[2018-05-02 02:23] LABS: BASOPHILS % (AUTO) 0.1 % (0-1); EOSINOPHILS % (AUTO) 0 % (0-6); HEMATOCRIT 36.1 % (35.0-45.0); HEMOGLOBIN 11.8 g/dl (12.0-16.0); LYMPHOCYTES # (AUTO) 1.9 X10'3 (1.1-4.8); LYMPHOCYTES % (AUTO) 11.3 % (21-51); MEAN CORPUSCULAR HEMOGLOBIN 27.1 PG (27.0-31.0); MEAN CORPUSCULAR HGB CONC 32.7 % (33.0-36.5); MEAN CORPUSCULAR VOLUME 82.9 FL (78-98); MEAN PLATELET VOLUME 9.7 FL (7.4-10.4); MONOCYTES # (AUTO) 1.4 X10'3 (0-0.9); MONOCYTES % (AUTO) 8.2 % (2-12); NEUTROPHILS # (AUTO) 13.5 X10'3 (1.8-7.7); NEUTROPHILS % (AUTO) 80.4 % (42-75); PLATELET COUNT 166 X10'3 (140-440); RED BLOOD COUNT 4.35 X10'6 (4.20-5.60); RED CELL DISTRIBUTION WIDTH 15.6 % (11.5-14.5); WHITE BLOOD COUNT 16.8 X10'3 (4.5-11.0)
[2018-05-02 02:37] LABS: ALBUMIN 3.1 G/DL (3.4-5.0); ANION GAP 6 (8-16); BLOOD UREA NITROGEN 18 MG/DL (7-18); BUN/CREATININE RATIO 22.5 (6.6-38.0); CALCIUM 8.5 MG/DL (8.5-10.1); CHLORIDE 100 MMOL/L (99-107); GLUCOSE 153 MG/DL (70-104); MAGNESIUM 2.4 MG/DL (1.5-2.4); PHOSPHORUS 3.1 MG/DL (2.3-4.5); POTASSIUM 4.6 MMOL/L (3.5-5.1); SODIUM 135 MMOL/L (135-145); TOTAL CARBON DIOXIDE 28.9 MMOL/L (24-32); eGFR 73 ML/MIN
[2018-05-02] MEDS ORDERED: magnesium 2GM in 50ml NS 50 ML IV ONE (05:00)
[2018-05-02] MEDS: HYDROcodone/acetaminophen 10/325mg tab PO PRN ×3 (05:30→19:27)
[2018-05-02 07:06] LABS: ACTIVATED CLOTTING TIME 122 SEC (101-148)
[2018-05-02 07:06] LABS: ACT @ 1.70 U 316 SEC (193-297); ACT @ 2.84 U 439 SEC (260-420); BASELINE ACT 159 SEC (101-148)
[2018-05-02] MEDS ORDERED: magnesium 4gm in 100ml NS 100 ML IV PRN (07:50)
[2018-05-02] MEDS ORDERED: potassium Cl 20 mEq SR tablet PO PRN ×2 (07:50)
[2018-05-02] MEDS ORDERED: potassium Cl 40MEQ/NS 500ml 500 ML IV PRN ×2 (07:50)
[2018-05-02] MEDS ORDERED: magnesium 1gm/100ml D5W IVPB 100 ML IV PRN (07:50)
[2018-05-02] MEDS ORDERED: magnesium Cl slow-release 64mg tablet PO PRN (07:50)
[2018-05-02] MEDS: K and/or MAG REPLACEMENT MC SCH (08:00)
[2018-05-02] MEDS: carVEDilol 3.125mg tablet PO SCH ×2 (08:36→19:27)
[2018-05-02] MEDS: aspirin 81mg tablet.DR PO SCH (08:36)
[2018-05-02] MEDS: docusate sod 100mg capsule PO SCH ×2 (08:36→19:27)
[2018-05-02] MEDS: potassium Cl 20 mEq SR tablet PO SCH ×2 (08:36→19:27)
[2018-05-02] MEDS: atorvastatin 20mg tablet PO SCH (08:36)
[2018-05-02] MEDS: pantoprazole 40mg Tablet.DR PO SCH (08:45)
[2018-05-02] MEDS: insulin Lispro (HumaLOG) vial - multi-dose SQ SCH ×3 (08:45→19:24)
[2018-05-02] MEDS: magnesium Cl slow-release 64mg tablet PO SCH ×2 (08:46→19:27)
[2018-05-02] MEDS ORDERED: dextrose 50%-water 50ml dispensing syringe IV PRN ×2 (19:10)
[2018-05-02] MEDS ORDERED: dextrose ORAL solution 15 GM/59 ML bottle PO PRN ×2 (19:10)
[2018-05-02] MEDS: insulin glargine (Lantus) pen - multi-dose SQ SCH (21:49)
[2018-05-03] MEDS: gabapentin 400mg capsule PO SCH ×3 (00:19→16:51)
[2018-05-03 03:00] VITALS: BP 100/54
[2018-05-03] MEDS: HYDROcodone/acetaminophen 10/325mg tab PO PRN ×3 (04:57→20:18)
[2018-05-03 06:00] VITALS: BP 115/67
[2018-05-03] MEDS ORDERED: HYDR-3972 PO (07:05)
[2018-05-03] MEDS ORDERED: ATOR20TA66 PO (07:05)
[2018-05-03] MEDS ORDERED: ASPI-1071 PO (07:05)
[2018-05-03] MEDS ORDERED: COR3.125T PO (07:05)
[2018-05-03] MEDS ORDERED: COL100C PO (07:05)
[2018-05-03 07:44] LABS: BASOPHILS % (AUTO) 0.2 % (0-1); EOSINOPHILS # (AUTO) 0.2 X10'3 (0-0.9); EOSINOPHILS % (AUTO) 1.6 % (0-6); HEMATOCRIT 35.6 % (35.0-45.0); HEMOGLOBIN 11.6 g/dl (12.0-16.0); LYMPHOCYTES # (AUTO) 3.2 X10'3 (1.1-4.8); LYMPHOCYTES % (AUTO) 20.8 % (21-51); MEAN CORPUSCULAR HEMOGLOBIN 26.9 PG (27.0-31.0); MEAN CORPUSCULAR HGB CONC 32.5 % (33.0-36.5); MEAN CORPUSCULAR VOLUME 82.8 FL (78-98); MEAN PLATELET VOLUME 9.4 FL (7.4-10.4); MONOCYTES # (AUTO) 1.3 X10'3 (0-0.9); MONOCYTES % (AUTO) 8.4 % (2-12); NEUTROPHILS # (AUTO) 10.7 X10'3 (1.8-7.7); PLATELET COUNT 263 X10'3 (140-440); RED CELL DISTRIBUTION WIDTH 15.3 % (11.5-14.5); WHITE BLOOD COUNT 15.5 X10'3 (4.5-11.0)
[2018-05-03] MEDS: magnesium Cl slow-release 64mg tablet PO SCH ×2 (07:51→20:13)
[2018-05-03] MEDS: carVEDilol 3.125mg tablet PO SCH ×2 (07:51→20:13)
[2018-05-03] MEDS: pantoprazole 40mg Tablet.DR PO SCH (07:51)
[2018-05-03] MEDS: docusate sod 100mg capsule PO SCH ×2 (07:51→20:13)
[2018-05-03] MEDS: aspirin 81mg tablet.DR PO SCH (07:51)
[2018-05-03] MEDS: potassium Cl 20 mEq SR tablet PO SCH ×2 (07:52→20:13)
[2018-05-03] MEDS: atorvastatin 20mg tablet PO SCH (07:52)
[2018-05-03] MEDS: K and/or MAG REPLACEMENT MC SCH (08:00)
[2018-05-03 08:04] LABS: ALBUMIN 3.1 G/DL (3.4-5.0); ANION GAP 6 (8-16); BLOOD UREA NITROGEN 16 MG/DL (7-18); BUN/CREATININE RATIO 20.8 (6.6-38.0); CALCIUM 8.9 MG/DL (8.5-10.1); CHLORIDE 102 MMOL/L (99-107); CREATININE 0.77 MG/DL (0.40-0.90); GLUCOSE 128 MG/DL (70-104); POTASSIUM 4.5 MMOL/L (3.5-5.1); SODIUM 140 MMOL/L (135-145); eGFR 76 ML/MIN
[2018-05-03] MEDS: insulin Lispro (HumaLOG) vial - multi-dose SQ SCH (09:25)
[2018-05-03 11:00] VITALS: BP 101/45
[2018-05-03 15:00] VITALS: BP 110/81
[2018-05-03 19:00] VITALS: BP 131/62
[2018-05-03] MEDS: insulin glargine (Lantus) pen - multi-dose SQ SCH (21:36)
[2018-05-03 23:00] VITALS: BP 105/53
[2018-05-04 03:00] VITALS: BP 101/55
[2018-05-04] MEDS: HYDROcodone/acetaminophen 10/325mg tab PO PRN ×2 (05:28→12:51)
[2018-05-04 06:00] VITALS: BP 100/57
[2018-05-04 06:56] LABS: BASOPHILS # (AUTO) 0.1 X10'3 (0-0.2); BASOPHILS % (AUTO) 0.8 % (0-1); EOSINOPHILS # (AUTO) 0.3 X10'3 (0-0.9); EOSINOPHILS % (AUTO) 2.5 % (0-6); HEMATOCRIT 34.2 % (35.0-45.0); HEMOGLOBIN 11.3 g/dl (12.0-16.0); LYMPHOCYTES # (AUTO) 2.5 X10'3 (1.1-4.8); LYMPHOCYTES % (AUTO) 20.3 % (21-51); MEAN CORPUSCULAR HEMOGLOBIN 26.9 PG (27.0-31.0); MEAN CORPUSCULAR VOLUME 81.7 FL (78-98); MEAN PLATELET VOLUME 8.8 FL (7.4-10.4); MONOCYTES # (AUTO) 1.3 X10'3 (0-0.9); MONOCYTES % (AUTO) 10.3 % (2-12); NEUTROPHILS # (AUTO) 8.3 X10'3 (1.8-7.7); NEUTROPHILS % (AUTO) 66.1 % (42-75); PLATELET COUNT 277 X10'3 (140-440); RED BLOOD COUNT 4.19 X10'6 (4.20-5.60); RED CELL DISTRIBUTION WIDTH 14.9 % (11.5-14.5); WHITE BLOOD COUNT 12.6 X10'3 (4.5-11.0)
[2018-05-04 07:28] LABS: ALBUMIN 2.8 G/DL (3.4-5.0); ANION GAP 8 (8-16); BLOOD UREA NITROGEN 13 MG/DL (7-18); CALCIUM 8.8 MG/DL (8.5-10.1); CHLORIDE 101 MMOL/L (99-107); CREATININE 0.65 MG/DL (0.40-0.90); GLUCOSE 137 MG/DL (70-104); MAGNESIUM 1.7 MG/DL (1.5-2.4); POTASSIUM 4.3 MMOL/L (3.5-5.1); SODIUM 139 MMOL/L (135-145); TOTAL CARBON DIOXIDE 30.2 MMOL/L (24-32); eGFR > 90 ML/MIN
[2018-05-04] MEDS: docusate sod 100mg capsule PO SCH (08:00)
[2018-05-04] MEDS: K and/or MAG REPLACEMENT MC SCH (08:00)
[2018-05-04] MEDS: insulin Lispro (HumaLOG) vial - multi-dose SQ SCH (08:52)
[2018-05-04] MEDS: pantoprazole 40mg Tablet.DR PO SCH (08:58)
[2018-05-04] MEDS: potassium Cl 20 mEq SR tablet PO SCH (08:58)
[2018-05-04] MEDS: gabapentin 400mg capsule PO SCH ×2 (08:58)
[2018-05-04] MEDS: magnesium Cl slow-release 64mg tablet PO SCH (08:58)
[2018-05-04] MEDS: atorvastatin 20mg tablet PO SCH (08:59)
[2018-05-04] MEDS: aspirin 81mg tablet.DR PO SCH (08:59)
[2018-05-04] MEDS: carVEDilol 3.125mg tablet PO SCH (09:00)
== END 2018-05-04 16:04 | disposition home health service (06) | DRG 219 ==
LOC: PCU 3S 14:58 → CICU 2S 04-29 11:47 → PCU 3S 05-02 11:20
PROVIDERS: ADMIT Thoracic Surgery (Cardiothoracic Vascular Surgery); ATTEND Thoracic Surgery (Cardiothoracic Vascular Surgery)
PROC: 02100Z9 Bypass Coronary Artery, One Artery from Left Internal Mammary, Open Approach (ICD-10-PCS; 2018-04-29)
PROC: 021109W Bypass Coronary Artery, Two Arteries from Aorta with Autologous Venous Tissue, Open Approach (ICD-10-PCS; 2018-04-29)
PROC: 06BP4ZZ Excision of Right Saphenous Vein, Percutaneous Endoscopic Approach (ICD-10-PCS; 2018-04-29)
PROC: 03HY32Z Insertion of Monitoring Device into Upper Artery, Percutaneous Approach (ICD-10-PCS; 2018-04-29)
PROC: 4A133B1 Monitoring of Arterial Pressure, Peripheral, Percutaneous Approach (ICD-10-PCS; 2018-04-29)
PROC: 4A133J1 Monitoring of Arterial Pulse, Peripheral, Percutaneous Approach (ICD-10-PCS; 2018-04-29)
PROC: 02HV33Z Insertion of Infusion Device into Superior Vena Cava, Percutaneous Approach (ICD-10-PCS; 2018-04-29)
PROC: 5A1221Z Performance of Cardiac Output, Continuous (ICD-10-PCS; 2018-04-29)
PROC: B24BZZ4 Ultrasonography of Heart with Aorta, Transesophageal (ICD-10-PCS; 2018-04-29)
PROC: 02RF08Z Replacement of Aortic Valve with Zooplastic Tissue, Open Approach (ICD-10-PCS; principal; 2018-04-29 06:40)
DX: I35.0 Nonrheumatic aortic (valve) stenosis (principal); I50.23 Acute on chronic systolic (congestive) heart failure; Z68.41 Body mass index [BMI] 40.0-44.9, adult; I25.5 Ischemic cardiomyopathy; E11.42 Type 2 diabetes mellitus with diabetic polyneuropathy; E66.01 Morbid (severe) obesity due to excess calories; I25.10 Atherosclerotic heart disease of native coronary artery without angina pectoris; M19.90 Unspecified osteoarthritis, unspecified site; M54.9 Dorsalgia, unspecified; Z79.899 Other long term (current) drug therapy; Z79.84 Long term (current) use of oral hypoglycemic drugs; Z87.891 Personal history of nicotine dependence
CPT/HCPCS: 0232T; 93312; 93325; Z7506; Z7508; 36415; 36600; 71045; 71046; 80048; 80053; 82330; 82435; 82803; 82947; 82948; 83036; 83735; 84100; 84132; 84295; 85018; 85025; 85027; 85347; 85384; 85610; 85730; 86885; 86900; 86901; 86920; 87070; 93005; 93880; 93970; 94060; 94668; 94760; 97110; 97116; 97161; 97530; A6258; A6402; A6449; A7000; A7048; C9113; G0378; J0690; J1644; J1650; J1815; J1885; J2060; J2250; J2270; J2370; J2440; J2720; J3370; J3475; J3480; J3490; J7030; J7120; P9045